=== PATIENT | male | born 1990 | race Caucasian/White ===

== ENCOUNTER 2019-09-18 18:43 | Emergency (ER) | payer OTHER ==
[2019-09-18 19:10] VITALS: BP 127/80; PULSE 74; TEMP 98.3; BMI 26.6
[2019-09-18] MEDS ORDERED: DIPHTH,PERTUSS(ACELL),TET 0.5 ML DISP.SYRIN IM ONE ×2 (20:12→20:24)
[2019-09-18] MEDS ORDERED: CEPHALEXIN MONOHYDRATE 500 MG CAPSULE (UD) PO ONE (22:53)
[2019-09-18] MEDS ORDERED: CEPHALEXIN MONOHYDRATE 500 MG CAPSULE (UD) ONE (22:54)
--- NOTE | 2019-09-19 01:15 | PDOC ---
Documentation entered by Lisa Michelle SCRIBE, acting as scribe for Lana Martinez MD. Lana Martinez MD: This documentation has been prepared by the Viviana benavides Mackenzie, SCRIBE, under my direction and personally reviewed by me in its entirety. I confirm that the documentation accurately reflects all work , treatment, procedures, and medical decision making performed by me. History of Present Illness - General Chief Complaint: Laceration Stated Complaint: CUT MY FINGER AND FELT FAINT History Source: Patient Exam Limitations: No Limitations - History of Present Illness Initial Comments: The patient is a 29 year old male, with no significant PMH who presents to the emergency department sustaining a laceration to his right thumb after which he syncopized just prior to presentation. 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 Pt felt he was about to syncopize and lied down in order to avoid hitting his head. Pts notes his last tetanus shot was 8 years ago. No numbness or weakness noted in the right thumb The patient denies chest pain, shortness of breath, and headache. Denies fever, chills, nausea, vomiting, diarrhea and constipation. Denies dysuria, frequency, urgency and hematuria. Allergies: NKA Past History - Past Medical History Allergies/Adverse Reactions: Allergies Allergy/AdvReac Type Severity Reaction Status Date / Time No Known Allergies Allergy Verified 09/18/19 18:45 Home Medications: Ambulatory Orders Cephalexin Monohydrate [Keflex -] 500 mg PO Q8H #12 capsule 09/18/19 COPD: No - Psycho Social/Smoking Cessation Hx Smoking History: Never smoked Hx Alcohol Use: No Drug/Substance Use Hx: No Review of Systems - Review of Systems Able to Perform ROS?: Yes Comments:: GENERAL/CONSTITUTIONAL: No fever or chills. No weakness. HEAD, EYES, EARS, NOSE AND THROAT: No change in vision. No ear pain or discharge. No sore throat. CARDIOVASCULAR: No chest pain or shortness of breath. RESPIRATORY: No cough, wheezing, or hemoptysis. GASTROINTESTINAL: No nausea, vomiting, diarrhea or constipation. GENITOURINARY: No dysuria, frequency, or change in urination. MUSCULOSKELETAL: (+) Deep cut on R thumb. No joint or muscle swelling or pain. No neck or back pain. SKIN: No rash NEUROLOGIC: No headache, vertigo, loss of consciousness, or change in strength/ sensation. ENDOCRINE: No increased thirst. No abnormal weight change. HEMATOLOGIC/LYMPHATIC: No anemia, easy bleeding, or history of blood clots. ALLERGIC/IMMUNOLOGIC: No hives or skin allergy. 09/18/19 20:01 *Physical Exam - Vital Signs Last Vital Signs Temp Pulse Resp BP Pulse Ox 98.3 F 74 18 127/80 100 09/18/19 18:45 09/18/19 18:45 09/18/19 18:45 09/18/19 18:45 09/18/19 18:45 - Physical Exam GENERAL: Awake, alert, and fully oriented, in no acute distress HEAD: No signs of trauma EYES: PERRLA, EOMI, sclera anicteric, conjunctiva clear ENT: Auricles normal inspection, hearing grossly normal, nares patent, oropharynx clear without exudates. Moist mucosa NECK: Normal ROM, supple, no lymphadenopathy, JVD, or masses LUNGS: Breath sounds equal, clear to auscultation bilaterally. No wheezes, and no crackles HEART: Regular rate and rhythm, normal S1 and S2, no murmurs, rubs or gallops ABDOMEN: Soft, nontender, normoactive bowel sounds. No guarding, no rebound. No masses EXTREMITIES: (+) 1.5 cm curvilinear laceration full thickness just distal to the dip joint on the right thumb. (+)Motor and sensory functioning intact. Normal range of motion, no edema. No clubbing or cyanosis. No cords, erythema, or tenderness NEUROLOGICAL: Cranial nerves II through XII grossly intact. Normal speech, normal gait SKIN: Warm, Dry, normal turgor, no rashes noted. 09/18/19 20:01 Procedures - Laceration/Wound Repair Right Dorsal 1st digit Wound Length: to 2.5 cm Wound Explored: clean Wound's Depth, Shape: linear Irrigated w/ Saline: Yes Betadine Prep: No (hibiclens/ethanol) Anesthesia: 1% Lidocaine Amount of Anesthetic (ccs): 2 Wound Repaired With: Sutures Suture Size/Type: 5:0 Number of Sutures: 4 Layer Closure: No Sterile Dressing Applied: Yes Splint Applied: Yes Sling Applied: No Progress: Right thumb prepped using Hibiclens/ethanol solution. Wound anesthetized using 1.5 mL of 1% lidocaine infiltrated directly into the wound. Wound irrigated thoroughly using 60 mL of sterile normal saline. No evidence of foreign body/ tendon disruption seen. Wound closed with 4 interrupted sutures of 5-0 nylon. Patient tolerated the procedure well. Bacitracin ointment, sterile dressing and splint applied Medical Decision Making - Medical Decision Making Prior to repair of patient's laceration, right thumb x-ray was performed: Small avulsion fracture of distal phalanx, dorsal aspect seen. Injury appears to be acute and is likely related to the knife injury. Result of x-ray discussed with the patient. He will be started on antibiotics Keflex) because of presence of open fracture. First dose of antibiotics will be given here in the emergency room. He will also be given referral information for follow-up with hand surgeon (Drs. Saenz/Marilyn) Because the patient thinks his most recent tetanus immunization was 8 years ago , Boostrix given tonight Repair of wound as noted above. Patient tolerated procedure well and was discharged in the company of his . He will follow-up with Dr. Saenz or Dr. Sanders as noted. He should return here or see his doctor in approximately 1 week for removal of the sutures. If he has redness/swelling/pain in the wound, he should see his doctor follow-up here sooner Discharge - Discharge Information Problems reviewed: Yes Clinical Impression/Diagnosis: Laceration of right thumb Qualifiers: Encounter type: initial encounter Damage to nail status: without damage Foreign body presence: without foreign body Qualified Code(s): S61.011A - Laceration without foreign body of right thumb without damage to nail, initial encounter Avulsion fracture of thumb Qualifiers: Encounter type: initial encounter Fracture type: open Laterality: right Qualified Code(s): S62.501B - Fracture of unspecified phalanx of right thumb, initial encounter for open fracture Condition: Stable Disposition: HOME - Additional Discharge Information Prescriptions: Cephalexin Monohydrate [Keflex -] 500 mg PO Q8H #12 capsule - Follow up/Referral Referrals: Alvin Saenz MD [Staff Physician] - - Patient Discharge Instructions Patient Printed Discharge Instructions: How to Care for a Laceration After Repair Additional Instructions: Keep original dressing in place as dry as possible for 48 hours After 2 days, remove bandage and use Band-Aid during the day/open at night Keflex 500 mg 3 times a day for 4 days Follow-up with hand surgeon(Dr Saenz/Dr Sanders) within 5 days Return here or see your doctor to remove stitches on Friday, September 25 Return here or follow-up with your doctor if wound becomes swollen/red/painful - Post Discharge Activity
== END 2019-09-18 23:02 | disposition home or self-care (01) ==
LOC: FER 18:43
CPT/HCPCS: 73140-TC-RT-FY; 90715; 99281-25